=== PATIENT | female | born 1980 | race Caucasian/White ===

== ENCOUNTER 2020-08-23 13:00 | Inpatient (IN) ==
[2020-08-23 13:37] LABS: Bacteria,Urine Few per hpf (None-Few); Bilirubin,Urine Negative (Negative); Blood,Urine Negative (Negative); Clarity,Urine Turbid (Clear); Color,Urine Yellow (Yellow); Glucose,Urine (UA) Normal (Normal); Hyaline Casts,Urine Moderate per lpf (None Seen); Ketones,Urine 20 mg/dL (Negative); Leukocyte Esterase,Urine Trace (Negative); Mucus,Urine Many per lpf (None-Few); Nitrite,Urine Negative (Negative); Protein,Urine 30 mg/dL (Neg-Trace); Squamous Epithelial Cell,Urine Few per hpf (None-Few); Urobilinogen,Urine Normal (Normal)
[2020-08-23 13:57] LABS: Basophils # 0.1 K/mcL (0.0-0.2); Eosinophils # 0.2 K/mcL (0.0-0.6); Eosinophils % 2.5 %; Hematocrit 41.6 % (35.3-44.9); Hemoglobin 12.5 g/dL (11.5-15.4); Immature Granulocytes % 0.2 % (0-4); Lymphocytes # 1.4 K/mcL (0.6-4.6); Lymphocytes % 23.7 %; Mean Corpuscular Hemoglobin 25.2 pg (28.0-33.3); Mean Corpuscular Volume 83.7 fL (83.0-100.0); Mean Platelet Volume 9.8 fL (9.4-12.4); Monocytes # 0.4 K/mcL (0.0-1.3); Monocytes % 6.3 %; Platelet Count 465 K/mcL (140-400); Red Blood Count 4.97 M/mcL (3.82-4.97); Red Cell Distribution Width 15.8 % (11.5-14.5); Segmented Neutrophils % 66.3 %
[2020-08-23 13:58] LABS: Amphetamine Screen,Urine Positive ng/mL (Cutoff=1000); Barbiturate Screen,Urine Negative ng/mL (Cutoff=200); Benzodiazepines Screen,Urine Negative ng/mL (Cutoff=200); Cannabinoid Screen,Urine Negative ng/mL (Cutoff = 50); Cocaine Screen,Urine Negative ng/mL (Cutoff= 300); Opiate Screen,Urine Negative ng/mL (Cutoff=300); Phencyclidine Screen,Urine Negative ng/mL (Cutoff=25)
[2020-08-23 14:02] LABS: Estimated Average Glucose 120 mg/dl
[2020-08-23 14:13] LABS: Acetaminophen < 10 mcg/mL (10-20); BUN/Creatinine Ratio 9 (6-26); Blood Urea Nitrogen 7 mg/dL (6-20); Calcium 9.2 mg/dL (8.6-10.3); Carbon Dioxide 25 mEq/L (23-29); Chloride 103 mEq/L (98-107); Chol/HDL Ratio 2.9 (0-4.9); Cholesterol 147 mg/dL (< 200); Ethanol < 10 mg/dL (Less than 10); Glucose 95 mg/dL (70-105); HDL Cholesterol 50 mg/dL (40-59); LDL Cholesterol,Calculated 82 mg/dL (< 100); Osmolality,Calculated 282 (280-300); Potassium 3.4 mEq/L (3.5-5.1); Salicylate < 2.5 mg/dL (15.0-30.0); Sodium 137 mEq/L (136-145); Triglycerides 75 mg/dL (< 150); eGFR For African Americans > 60 (> 60); eGFR For Non-African Americans > 60 (> 60)
[2020-08-23] MEDS ORDERED: *HR* LORazepam 1 MG TABLET PO ONE (15:59)
[2020-08-23] MEDS ORDERED: *HR* LORazepam 2 MG/ML VIAL IM PRN (16:36)
[2020-08-23] MEDS ORDERED: Acetaminophen 325 MG TABLET PO PRN (16:36)
[2020-08-23] MEDS ORDERED: Mag Hydrox/Al Hydrox/Simeth 30 ML UDC PO PRN (16:36)
[2020-08-23] MEDS ORDERED: haloperidoL 5 MG TABLET PO PRN (16:36)
[2020-08-23] MEDS ORDERED: *HR* LORazepam 1 MG TABLET PO PRN (16:36)
[2020-08-23] MEDS ORDERED: MOM Conc 10 ML UD.LIQ PO PRN (16:36)
[2020-08-23] MEDS ORDERED: Haloperidol Lactate 5 MG/ML VIAL IM PRN (16:36)
[2020-08-23] MEDS ORDERED: OLANZapine 10 MG TAB.RAPDIS PO PRN (16:38)
[2020-08-23] MEDS: hydrOXYzine pamoate 25 MG CAPSULE PO PRN (20:31)
[2020-08-23] MEDS: QUEtiapine Fumarate 25 MG TABLET PO SCH (20:31)
[2020-08-24] MEDS: hydrOXYzine pamoate 25 MG CAPSULE PO PRN (14:26)
[2020-08-24] MEDS ORDERED: ARIPiprazole 5 MG TABLET PO SCH (21:00)
[2020-08-24] MEDS: QUEtiapine Fumarate 25 MG TABLET PO SCH (21:36)
[2020-08-25] MEDS: Prenatal Vit/FA 1 EACH TABLET PO SCH (09:24)
[2020-08-25] MEDS: hydrOXYzine pamoate 25 MG CAPSULE PO PRN ×2 (11:57→16:30)
[2020-08-25] MEDS: traZODone 50 MG TABLET PO PRN (20:25)
[2020-08-25] MEDS: QUEtiapine Fumarate 25 MG TABLET PO SCH (20:25)
[2020-08-26] MEDS: Prenatal Vit/FA 1 EACH TABLET PO SCH (08:45)
[2020-08-26] MEDS: hydrOXYzine pamoate 25 MG CAPSULE PO PRN ×3 (10:09→22:54)
[2020-08-26] MEDS: QUEtiapine Fumarate 25 MG TABLET PO SCH (20:42)
[2020-08-27] MEDS: Prenatal Vit/FA 1 EACH TABLET PO SCH (10:01)
[2020-08-27] MEDS: hydrOXYzine pamoate 25 MG CAPSULE PO PRN ×2 (13:53→19:45)
[2020-08-27] MEDS: QUEtiapine Fumarate 25 MG TABLET PO SCH (20:08)
[2020-08-27] MEDS: traZODone 50 MG TABLET PO PRN (23:55)
[2020-08-28] MEDS: Prenatal Vit/FA 1 EACH TABLET PO SCH (08:57)
[2020-08-28] MEDS: hydrOXYzine pamoate 25 MG CAPSULE PO PRN ×2 (12:03→17:39)
[2020-08-28] MEDS ORDERED: traZODone 50 MG TABLET PO SCH (21:00)
[2020-08-29] MEDS: Prenatal Vit/FA 1 EACH TABLET PO SCH (08:25)
[2020-08-29 09:20] VITALS: BP 129/90
[2020-08-29] MEDS: hydrOXYzine pamoate 25 MG CAPSULE PO PRN (11:37)
== END 2020-08-29 13:50 | disposition home or self-care (01) | DRG 750 ==
LOC: EMEROOARM 13:00 → SUATTDRO 16:34 → 1ANU 16:34
PROVIDERS: ADMIT Psychiatry & Neurology Forensic Psychiatry; ATTEND Psychiatry & Neurology Psychiatry